=== PATIENT | male | born 1995 | race Two or more races ===

== ENCOUNTER 2024-10-28 14:41 | Emergency (ER) | payer MEDICAID, SELFPAY ==
[2024-10-28 14:42] VITALS: BMI 33.4
[2024-10-28 14:53] VITALS: BP 145/85; PULSE 61; RESP 20; TEMP 36.9; O2SAT 98
--- NOTE | 2024-10-28 15:12 | XR_ITS ---
Examination: CT soft tissue neck, with intravenous contrast. 2-D coronal reconstructions. 2-D sagittal reconstructions. Date and time of exam :October 28, 2024, 1717 hours INDICATIONS: Right lower jaw and tooth pain 1 week. CTDI: vol (mGy):14.6. DLP: (mGycm):403. Technique: 1.25 mm axial sections of the neck of the obtained. Coronal and sagittal reconstructions have been obtained. Intravenous contrast administered 50 cc Isovue 370.. Low dose protocols were performed. One or more of the following dose reduction techniques were used; automated exposure control, adjustment of the mA and/or KV according to patient size, use of iterative reconstruction technique. Findings: Maxillary antra are clear. Symmetrical nasopharynx. Mild soft tissue tonsillar hypertrophy no tonsillar abscess Inflamed appearing right submandibular gland Right mandibular molar dental caries axial image 36 with cellulitis pattern in the soft tissue lateral to the right mandible No soft tissue abscess Left maxillary molar dental caries axial image 28 Partially dislodged left mandibular incisor on the left, axial image 47, clinical correlation advised Normal epiglottis IMPRESSION: Right mandibular molar dental caries with associated cellulitis pattern in the soft tissue lateral to the right mandible, no soft tissue abscess Left maxillary molar dental caries axial image 28 Inflammation around the right submandibular gland which may relate to the mandibular molar dental infection
--- NOTE | 2024-10-28 15:13 | EDNOTE_ITS ---
<Statement entered by Fernanda Bourne MD - 11/03/24 06:56> As co-signing physician, I was present and available for consult prn. I concur with the plan and care as documented by the midlevel provider. ED Dental RME/HPI General Chief complaint: Dental/Oral/Throat Stated complaint: TOOTHACHE R) LOWER JAW, #31; SENT BY [facility] Time Seen by Provider: 10/28/24 14:52 Arrival date/time: 10/28/24 14:41 RME / HPI RME / HPI Narrative: 29-year-old male patient with no significant past medical history, came in for evaluation regarding right mandibular swelling and tenderness.. Onset of symptoms for the last 6 days, severity of symptoms moderate. Patient told me that he had a dental pain also. Patient denies any fever. Denies any difficulty swallowing, denies any other complaints no medication was taken prior to arrival. Related Data Previous Rx's ?Medication ?Instructions ?Recorded ibuprofen 800 mg tablet 800 mg PO TID PRN pain #30 t abs 12/12/21 Allergies Allergy/AdvReac Type Severity Reaction Status Date / Time No Known Allergies Allergy Verified 10/28/24 14:44 Review of Systems Review of Systems Narrative Review of Systems: Review of system reviewed and within normal limits except mentioned in HPI ED Exam Narrative Physical exam: VITAL SIGNS: Reviewed. GENERAL APPEARANCE: Alert and interactive, follows commands, no acute distress, HEAD AND FACE: Non-traumatic. ENT: PERRL, pink conjunctivitis, eyelid no trauma, Mucous membrane moist. Right mandibular swelling, NECK: Supple, nontender, no nuchal rigidity. CHEST: No tenderness, no crepitus, no paradoxical movement, no retractions. LUNGS: Clear, well ventilated, symmetric, no rales, no wheezing, no ronchi, no stridor, good breath sounds bilaterally. HEART: Regular rate, regular rhythm, no murmur, no gallops. ABDOMEN: Soft, positive bowel sounds, nondistended, no guarding, nontender, no rebound, no masses, RECTAL: Deferred. GENITAL: Deferred. NEUROLOGICAL: Gross motor function intact sensory function intact, Appropriate for age. MUSCULOSKELETAL: low back nontender, full range of motion. EXTREMITIES: Nontender, full range of motion. SKIN: Color pink, dry, no rash, no lacerations, no abrasions, no contusions. LYMPHATICS: Deferred. Course Quality Measures none Orders Category Date Time Status CT Screening NOW Care 10/28/24 15:[address] soft tissue neck w con Stat Exams 10/28/24 15:12 Completed CBC [CBC] Stat Lab 10/28/24 15:17 Completed CMP [Comprehensive Metabolic Panel] Stat Lab 10/28/24 15:17 Completed Clindamycin 900Mg Ivpb [Cleocin/D5w Ivpb] 900 mg Med 10/28/24 15:53 Discontinued Pre-Mixed [Pre-mixed Bag] 1 bag IV X1 Dexamethasone Inj [Decadron Inj] Med 10/28/24 15:53 Discontinued 10 mg IVP X1 ONE Ketorolac Inj [Toradol Inj] Med 10/28/24 15:12 Discontinued 30 mg IVP X1 ONE Vital Signs Vital signs: Vital Signs Temperature 98.5 F 10/28/24 14:53 Pulse Rate 61 10/28/24 14:53 Respiratory Rate 20 10/28/24 14:53 Blood Pressure 145/85 H 10/28/24 14:53 Pulse Oximetry (%) 98 10/28/24 14:53 Oxygen Delivery Method Room Air 10/28/24 14:53 Dental / Oral MDM Narrative MDM Narrative:: 29-year-old male patient with no significant past medical history, came in for evaluation regarding right mandibular swelling and tenderness.. Onset of symptoms for the last 6 days, severity of symptoms moderate. Patient told me that he had a dental pain also. Patient denies any fever. Denies any difficulty swallowing, denies any other complaints no medication was taken prior to arrival. Patient's CBC showed leukocytosis of 15.[address] scan of the soft tissue neck showed Right mandibular molar dental caries with associated cellulitis pattern in the soft tissue lateral to the right mandible, no soft tissue abscess Left maxillary molar dental caries axial image 28 Inflammation around the right submandibular gland which may relate to the mandibular molar dental infection Patient was given IV clindamycin IV Decadron and Toradol with significant improvement of symptoms. Was advised to follow-up closely with dentist. There is no need to do I&D at this time. Patient data External records reviewed:: None Clinical information provided by:: patient Social determinants that could affect healthcare access:: none Patient has the following chronic illnesses:: Plan How is presenting disease/condition affected by chronic disease/condition?: no chronic disease Evaluation data The following diagnostics were reviewed and interpreted by me:: lab results and radiology exam(s) Lab and/or radiology exams considered but not ordered:: None Interpretation Summary: See results MDM Medications / Prescriptions Medications or Prescriptions considered but not ordered:: None Medication administrations:: Medication Administration History Discontinued Medications Dexamethasone Sodium Phosphate (Dexamethasone Sod Phos Inj 10 Mg/Ml Vial) 10 mg IVP X1 ONE Stop: 10/28/24 15:54 Clindamycin Phosphate 900 mg/ (IV Miscellaneous Supplies) 50 mls @ 50 mls/hr IV X1 ONE Stop: 10/28/24 16:52 Ketorolac Tromethamine (Ketorolac Inj 30 Mg/Ml Vial) 30 mg IVP X1 ONE Stop: 10/28/24 15:13 Toradol, clindamycin DEXA Consultations Consultation(s) initiated? (list below): No Diagnosis Dental Differential Diagnosis: gingival abscess, dental caries and dental abscess Most likely diagnosis given after review of the tests above:: Infected dental caries Admission Indicated Admission indicated?: not indicated Admission Request Was there a request for admission?: No Disposition Plan Disposition Plan: Discharge Discharge Attestation Discharge Attestation: The patient and all family members were given an opportunity to ask questions and understood the discharge instructions. Discharge instructions specifically effects, indications for sooner follow up or return to the emergency department, and the expected course of current diagnosis. Patient condition: Stable Discharge Plan Plan Patient Disposition: HOME (Self Care) Discharge Disposition comment: Stable Prescriptions/Referrals Prescriptions/Med Rec: No Action ibuprofen 800 mg tablet 800 mg PO TID PRN (Reason: pain) Qty: 30 0RF Referrals: Delvin Ann MD [Primary Care Provider] - In 1 week Problem List Clinical Impression: Infected dental caries Patient/Caregiver Discharge Instructions Discharge Activity: activity as tolerated Education Materials: ED Dental Cavity Additional Instructions: Thank you for the opportunity for serving you today. You are stable for discharged . You are advised to: Follow-up with your dentist as instructed Return to ED for worsening of symptoms Increase oral fluids Take medication as prescribed Hydrogen peroxide combined with water gargle 4 times a day as needed Print Language: Bulgarian Stand Alone Forms: Isabel Award Info., Patient Portal Info Letter MARYLIN/MARGIE Supervising Physician MARYLIN/MARGIE Supervising Physician: MD Tayla
[2024-10-28 15:25] LABS: Basophils # (Auto) 0.0 Thou/mm3 (0.0-0.2); Basophils % (Auto) 0 % (0-2.5); Eosinophils # (Auto) 0.1 Thou/mm3 (0.0-0.5); Eosinophils % (Auto) 0 % (0-10); Hematocrit 42.1 % (41.0-53.0); Hemoglobin 14.6 g/dL (13.5-16.0); Immature Granulocytes Auto 0.07 Thou/mm3 (0.00-0.00); Lymphocytes # (Auto) 2.2 Thou/mm3 (1.0-4.8); Lymphocytes % (Auto) 14 % (10-50); Mean Corpuscular HGB Conc 34.7 g/dl (31.0-37.0); Mean Corpuscular Hemoglobin 30.7 pg (25.0-35.0); Mean Corpuscular Volume 88 fL (80-100); Monocytes # (Auto) 1.2 Thou/mm3 (0.0-0.8); Monocytes % (Auto) 8 % (0-12); Neutrophils # (Auto) 12.2 Thou/mm3 (1.8-7.7); Neutrophils % (Auto) 77 % (37-80); Nucleated Red Blood Cell # 0.00 Thou/mm3 (0.00-0.00); Nucleated Red Blood Cell % 0 /100 WBC (0); Platelet Count 268 Thou/mm3 (140-440); RDW Standard Deviation 39.5 fL (35.1-43.9); Red Blood Count 4.76 Miln/mm3 (4.50-5.90); White Blood Count 15.8 Thou/mm3 (3.8-10.6)
[2024-10-28 15:41] LABS: Alanine Aminotransferase 22 U/L (10-49); Albumin, Serum 4.9 gm/dL (3.5-5.0); Albumin/Globulin Ratio 1.6 (1.2-2.2); Alkaline Phosphatase 78 U/L (46-116); Anion Gap 8 (7-16); Aspartate Amino Transferase 18 U/L (0-34); BUN/Creatinine Ratio 13 Ratio (12-20); Bilirubin,Total 1.0 mg/dL (0.3-1.2); Blood Urea Nitrogen 13 mg/dL (9-23); Calcium 9.9 mg/dL (8.3-10.6); Calcium (Corrected) 9.9 mg/dL (8.5-10.1); Carbon Dioxide 25.3 mMol/L (20.0-31.0); Chloride 105 mMol/L (98-107); Creatinine (Component) 1.0 mg/dL (0.6-1.3); Estimated Creatinine Clearance 125.9 mL/min (>60); Globulin 3.0 gm/dL (2.3-3.5); Glucose 89 mg/dL (74-106); Osmolality,Calculated 274 (275-295); Potassium 4.2 mMol/L (3.4-5.1); Sodium 138 mMol/L (136-145); Total Protein 7.9 gm/dL (5.7-8.2); eGFR > 60 See Note
[2024-10-28] MEDS: KETOROLAC INJ 30 MG/ML VIAL IVP (19:36)
[2024-10-28] MEDS: DEXAMETHASONE SOD PHOS INJ 10 MG/ML VIAL IVP (19:38)
[2024-10-28] MEDS: CLINDAMYCIN 900MG IVPB 900 MG in PRE-MIXED 1 BAG 50 MG IV (19:39)
== END 2024-10-28 20:48 | disposition home or self-care (01) ==
PROVIDERS: Emergency Provider Nurse Practitioner Family; PCP Family Medicine
DX: K04.7 Periapical abscess without sinus (principal); K02.9 Dental caries, unspecified; D72.829 Elevated white blood cell count, unspecified
CPT/HCPCS: 36415; 70491; 80053; 85025; 96365; 96375; 99283; A4649; J1100; J1885; Q9967; S0077; J0736